=== PATIENT | male | born 1990 | race Caucasian/White ===

== ENCOUNTER 2021-10-16 18:05 | Emergency (ER) | payer OTHER, SELFPAY ==
--- NOTE | ~2021-10-16 | XR_ITS ---
EXAMINATION: XR chest 2V EXAM DATE: 10/16/2021 18:42 INDICATION: Fluttering in chest X 48 hours. TECHNIQUE: Frontal and lateral projections of the chest obtained and reviewed. There is no prior margaret dy for comparison. FINDINGS: The lungs are clear. There are no pleural effusions. The cardiomediastinal silhouette is within normal limits. There is no pneumothorax suspected. The bones and soft tissues are unremarkab le. IMPRESSION: Normal chest x-ray exam. Reviewed, dictated and finalized at location A. S PULLER HELPER IMPRESSION: Normal chest x-ray exam.
--- NOTE | 2021-10-16 18:11 | ECG_ITS ---
Measurements Intervals [place] Rate: 78 P: 56 NM: 151 QRS: 17 QRSD: 90 T: 10 QT: 342 QTc: 392 Interpretive Statements SINUS RHYTHM INCOMPLETE RIGHT BUNDLE BRANCH BLOCK BORDERLINE ECG Electronically Signed On 10-16-2021 20:15:31 OUTREACH REP by Efrain Johansen D.O.
[2021-10-16 18:21] VITALS: BP 154/105; PULSE 90; RESP 16; TEMP 36.2; O2SAT 100
[2021-10-16 18:43] LABS: Basophils Absolute Auto 0.1 K/mm3 (0.0-0.1); Basophils Percent Auto 0.7 % (0.2-1.2); Eosinophils Absolute Auto 0.2 K/mm3 (0-0.3); Eosinophils Percent Auto 2.2 % (0-4.4); Hematocrit 47.9 % (42.0-52.0); Hemoglobin 16.4 g/dL (14.0-18.0); Immature Granulocyte Absolute 0.02 K/mm3 (0.00-0.031); Immature Granulocyte Percent A 0.2 % (0-0.5); Lymphocytes Absolute Auto 2.99 K/mm3 (0.9-3.2); Mean Corpuscular HGB Conc 34.2 g/dl (32-36); Mean Corpuscular Hemoglobin 30.8 pg (26-34); Mean Platelet Volume 9.3 fl (7.4-10.4); Monocytes Absolute Auto 0.7 K/mm3 (0.1-0.6); Monocytes Percent Auto 7.6 % (2.6-8.5); Neutrophils Absolute Auto 4.6 K/mm3 (1.3-6.7); Neutrophils Percent Auto 54.3 % (45.5-73.1); Platelet Count Result 305 k/mm3 (150-375); Red Blood Count 5.32 M/mm3 (4.6-6.20); Red Cell Distribution Width 12.3 % (11.5-14.5); White Blood Count 8.5 K/mm3 (4.5-10.0)
[2021-10-16 18:49] LABS: Alanine Aminotransferase 36 U/L (4-50); Alkaline Phosphatase 51 U/L (38-126); Anion Gap 7 mmol/L (8-16); Aspartate Amino Transferase 33 U/L (17-59); Bilirubin,Total 0.5 mg/dL (0.2-1.3); Blood Urea Nitrogen 13 mg/dL (9-20); Calcium 9.6 mg/dL (8.4-10.2); Carbon Dioxide 30 mmol/L (22-30); Chloride 98 mmol/L (98-107); Estimated CRCL calculation 116 ml/min; Estimated Glomerular Filt Rate > 60; Glucose 108 mg/dL (65-110); INR 0.9; Lipase 50 U/L (23-300); Potassium 4.2 mmol/L (3.4-5.0); Prothrombin Time 12.5 Seconds (11.1-14.7); Sodium 135 mmol/L (137-145)
[2021-10-16 18:50] LABS: Partial Thromboplastin Time 30.3 SECONDS (22.3-36.8)
[2021-10-16 19:01] LABS: Troponin I < 0.012 ng/mL (0.000-0.034)
[2021-10-16 20:08] VITALS: BP 136/74; PULSE 71; RESP 16; TEMP 36.4; O2SAT 99
[2021-10-16 21:51] VITALS: BP 132/76; PULSE 72; RESP 18; TEMP 36.7; O2SAT 100
--- NOTE | 2021-10-16 21:52 | ED.GENADULT ---
HPI - General Adult General Chief complaint: Chest Pain Stated complaint: palpatations Time Seen by Provider: 10/16/21 21:39 Source: patient and RN notes reviewed Mode of arrival: ambulatory Limitations: no limitations History of Present Illness HPI narrative: This is a 31 year old male who presents for evaluation of palpitations. He started feeling that his heart was skipping a beat 2 days ago. He thought he drank too much coffee so he skipped coffee today. He has still continued have palpitations today. He denies shortness of breath, lightheadedness, dizziness or chest pain. He denies nausea , vomiting. He denies taking any supplements, medications or illicit drugs. HE recently moved here from [place], [place] for a new job. He denies leg swelling or calf pain. Review of Systems Review of Systems: All systems reviewed & are unremarkable except as noted in HPI and below Constitutional: Constitutional: Denies chills and Denies fever(s) Cardiovascular: Cardiovascular: Denies chest pain and Denies radiating jaw, neck or arm pain Respiratory: Respiratory: Denies cough and Denies dyspnea Gastrointestinal: Gastrointestinal: Denies abdominal pain, Denies nausea and Denies vomiting [facility] Past Medical History Medical History (Updated 10/17/21 @ 00:00 by Elda Brennan) Patient denies medical problems Surgical History Surgical History (Updated 10/16/21 @ 22:04 by Umm Bueno MD) No pertinent past surgical history Social History Social History (Updated 10/16/21 @ 22:04 by Umm Bueno MD) Alcohol intake: current Drinks per week: 4 Substance use: never Exam Const: General: no acute distress and alert Orientation/consciousness: patient oriented x3 Eyes: EOM: EOMs intact bilaterally Resp: Effort & Inspection: normal respiratory effort and no retractions Auscultation: clear to auscultation bilaterally Cardio: Rate: regular rate Rhythm: regular rhythm Heart sounds: no murmurs GI: GI Palp: Yes Soft to palpation, No Tenderness to palpation present (GI) and No Guarding due to palpation present (GI) Auscultation: normal bowel sounds Skin: General skin exam: normal color Rashes: no rashes Neuro: General: patient oriented x3, moves all extremities and CN's II-XI intact bilaterally Psych: Mental Status: mental status grossly normal Affect: normal affect Course Reevaluation(s) Reevaluation #1: I discussed with patient labs are unremarkable and he will need to follow up with PCP. On his threat monitoring analyst I saw a PVC but no other arrhythmia. He will continue to cut out alcohol and coffee. This may be due to stress as well. Date: 10/16/21 Time: 22:55 Vital Signs Vital signs: Vital Signs Temperature 97.2 F L 10/16/21 18:21 Pulse Rate 90 10/16/21 18:21 Respiratory Rate 16 10/16/21 18:21 Blood Pressure 154/105 H 10/16/21 18:21 Pulse Oximetry 100 10/16/21 18:21 Temperature 98.0 F 10/16/21 21:51 Pulse Rate 69 10/16/21 23:08 Respiratory Rate 14 10/16/21 23:08 Blood Pressure 129/73 10/16/21 23:08 Pulse Oximetry 100 10/16/21 23:08 Medical Decision Making Vital Signs Vital Signs: Vital Signs Temperature 97.2 F L 10/16/21 18:21 Pulse Rate 90 10/16/21 18:21 Respiratory Rate 16 10/16/21 18:21 Blood Pressure 154/105 H 10/16/21 18:21 Pulse Oximetry 100 10/16/21 18:21 Temperature 98.0 F 10/16/21 21:51 Pulse Rate 69 10/16/21 23:08 Respiratory Rate 14 10/16/21 23:08 Blood Pressure 129/73 10/16/21 23:08 Pulse Oximetry 100 10/16/21 23:08 Lab Data Lab results reviewed: Yes I reviewed the patient's lab results. Result diagrams: 10/16/21 18:29 10/16/21 18:29 Labs: Lab Results 10/16/21 10/16/21 10/16/21 Range/Units 18:29 18:29 18:29 WBC 8.5 (4.5-10.0) K/mm3 RBC 5.32 (4.6-6.20) M/mm3 Hgb 16.4 (14.0-18.0) g/dL Hct 47.9 (42.0-52.0) % MCV 90.0 (80-100) fl
[2021-10-16 22:52] LABS: Magnesium 2.1 mg/dL (1.6-2.3); Troponin I < 0.012 ng/mL (0.000-0.034)
[2021-10-16 23:08] VITALS: BP 129/73; PULSE 69; RESP 14; O2SAT 100
== END 2021-10-16 23:09 | disposition home or self-care (01) ==
PROVIDERS: Emergency Medicine; Emergency Provider General Practice
DX: R00.2 Palpitations (principal); R07.9 Chest pain, unspecified
CPT/HCPCS: 36415; 71046; 80053; 83690; 83735; 84484; 85025; 85610; 85730; 93005; 99284